=== PATIENT | male | born 2000 | race African-American/Black ===

== ENCOUNTER 2024-06-20 21:01 | Emergency (ER) | payer BC ==
[~2024-06-20] VITALS: Ht 167.6 cm; Wt 60.0 kg
[2024-06-20 21:12] VITALS: O2SAT 99
[2024-06-21 02:20] VITALS: BP 106/59; PULSE 70; RESP 17; TEMP 36.8; O2SAT 100
== END 2024-06-21 02:21 | disposition home or self-care (01) ==
LOC: ER 21:01
DX: R10.9 Unspecified abdominal pain (principal); V49.9XXA Car occupant (driver) (passenger) injured in unspecified traffic accident, initial encounter; Y93.89 Activity, other specified; Y92.89 Other specified places as the place of occurrence of the external cause; Y99.8 Other external cause status
CPT/HCPCS: 99281